=== PATIENT | male | born 1930 | race Caucasian/White ===

== ENCOUNTER → 2016-05-25 | Outpatient (CLI) | payer OTHER ==
[~2016-05-25] MED LIST: BIMA0.01 OPB; LEVO137T3 PO; LISI-729 PO; METO25TA3 PO; PRED10TA PO
[2016-05-25 16:02] LABS: ALT/SGPT 17 U/L (12-78); BLOOD UREA NITROGEN 19 mg/dl (7-18); BUN/CREATININE RATIO 21.7 (10-20); CALCIUM 9.6 mg/dl (8.5-10.1); CARBON DIOXIDE 27 mmol/L (21-32); CHLORIDE 106 mmol/L (98-107); CREATININE 0.87 mg/dl (0.60-1.40); GLUCOSE 135 mg/dl (70-99); POTASSIUM 4.1 mmol/L (3.5-5.1); SODIUM 142 mmol/L (136-145)
[2016-05-25 16:12] LABS: ALB/GLOB RATIO 1.1 (0.9-2); ALKALINE PHOSPHATASE 68 U/L (45-117); AST/SGOT 15 U/L (15-37); THYROID STIMULATING HORMONE 0.816 uIu/ml (0.300-4.500)
[2016-05-26 05:58] LABS: ESTIMATED AVERAGE GLUCOSE 146 mg/dl; HA1C FLAG Normal (Normal)
== END | disposition home or self-care (01) ==
LOC: C.LAB1850 14:10
PROVIDERS: ATTEND Internal Medicine
DX: E11.9 Type 2 diabetes mellitus without complications (principal); E03.9 Hypothyroidism, unspecified

== ENCOUNTER → 2016-07-05 | Outpatient (CLI) | payer OTHER | END | disposition home or self-care (01) | LOC: C.PATHSPEC 15:55 | PROVIDERS: ATTEND Podiatrist | DX: E11.621 Type 2 diabetes mellitus with foot ulcer (principal) ==

== ENCOUNTER → 2016-07-05 | Outpatient (CLI) | payer OTHER | END | disposition home or self-care (01) | LOC: C.LABSPEC 15:02 | PROVIDERS: ATTEND Podiatrist | DX: E11.621 Type 2 diabetes mellitus with foot ulcer (principal) ==

== ENCOUNTER → 2016-10-19 | Outpatient (CLI) | payer OTHER ==
[2016-10-19 12:32] LABS: ALT/SGPT 18 U/L (12-78); AST/SGOT 11 U/L (15-37); BLOOD UREA NITROGEN 18 mg/dl (7-18); BUN/CREATININE RATIO 17.7 (10-20); CALCIUM 9.6 mg/dl (8.5-10.1); CARBON DIOXIDE 31 mmol/L (21-32); CHLORIDE 107 mmol/L (98-107); CHOLESTEROL 248 mg/dl (0-200); GLUCOSE 125 mg/dl (70-99); POTASSIUM 4.2 mmol/L (3.5-5.1); SODIUM 142 mmol/L (136-145); TRIGLYCERIDES 137 mg/dl (0-150); VERY LOW DENSITY LIPOPROT CALC 27 mg/dl
[2016-10-19 12:38] LABS: ESTIMATED AVERAGE GLUCOSE 154 mg/dl; HA1C FLAG Normal (Normal)
[2016-10-19 12:42] LABS: ALB/GLOB RATIO 1.3 (0.9-2); ALKALINE PHOSPHATASE 48 U/L (45-117); CHOLESTEROL/HDL RATIO 4.3; HDL CHOLESTEROL 58 mg/dl; LDL CHOLESTEROL CALCULATED 163 mg/dl
== END | disposition home or self-care (01) ==
LOC: C.LAB1850 09:32
PROVIDERS: ATTEND Internal Medicine
DX: E11.9 Type 2 diabetes mellitus without complications (principal); E03.9 Hypothyroidism, unspecified

== ENCOUNTER → 2017-06-20 | Outpatient (CLI) | payer OTHER ==
--- NOTE | 2017-06-20 14:19 | DIAGNOSTIC IMAGING REPORT ---
BRAIN WITHOUT CONTRAST HISTORY: Mental status change R53.83 [id number] Gait [id number] Cerebral TECHNIQUE: Multiplanar multisequence MRI of the brain was performed without the use of contrast. COMPARISON STUDY: 02/26/2013 FINDINGS: There are no areas of restricted diffusion to suggest acute infarction. The midline structures are intact. The paranasal sinuses are clear. The mastoid air cells are clear. The ventricles and sulci are within normal limits for age. There is no mass, hematoma, midline shift. The major vascular flow-voids at the skull base are well maintained. Age-related atrophy and minimal chronic small vessel change are noted and appear stable from the prior exam. IMPRESSION: 1. Atrophy and age-related minimal chronic small vessel change. No acute process. No change from the prior exam. The above report was generated using voice recognition software. It may contain grammatical, syntax or spelling errors. Electronically signed by: Lane Red M.D. 06/20/2017 2:18 PM Dictated Date/Time: 06/20/2017 2:14 PM
== END | disposition home or self-care (01) ==
LOC: C.MRI 13:28
PROVIDERS: ATTEND Internal Medicine
DX: I67.9 Cerebrovascular disease, unspecified (principal); R42 Dizziness and giddiness; R53.83 Other fatigue; R26.81 Unsteadiness on feet; W19.XXXA Unspecified fall, initial encounter

== ENCOUNTER → 2017-07-17 | Outpatient (CLI) | payer OTHER ==
--- NOTE | 2017-07-17 16:09 | DIAGNOSTIC IMAGING REPORT ---
ABDOMEN 2VIEW W/PA CHEST RTN CLINICAL HISTORY: 86 years-old Male presenting with K59.00 [id number]. TECHNIQUE: PA view of the chest and supine and upright views of the abdomen were obtained. COMPARISON: Chest x-ray from 05/27/2015. FINDINGS: Median sternotomy wires intact. Atherosclerosis of aortic arch. Cardiac silhouette normal in size. Mild prominence of pulmonary arteries as on prior exam. No focal opacity. No large effusion or pneumothorax. Nonobstructive bowel gas pattern. Moderate stool burden in the right colon. No gross pneumoperitoneum. 8 mm calcification projects over the lower pole of the left kidney concerning for renal calculus. Multiple pelvic phleboliths. Degenerative changes of the spine. Degenerative changes of the hips, left greater than right. IMPRESSION: 1. No acute cardiopulmonary disease. 2. Moderate stool burden in the right colon could be consistent with constipation. No bowel obstruction. 3. Left renal calculus. Electronically signed by: Jose Garduno M.D. 07/17/2017 4:08 PM Dictated Date/Time: 07/17/2017 4:06 PM
[2017-07-17 16:38] LABS: BASO % 0.1 %; BASO ABS # 0.01 K/uL (0-0.2); EOS % 0.3 %; EOS ABS # 0.04 K/uL (0-0.5); HEMATOCRIT 47.5 % (42-52); HEMOGLOBIN 17.3 g/dL (14.0-18.0); IG# 0.17 K/uL (0.00-0.02); LYMPH % 8.2 %; LYMPH ABS # 0.95 K/uL (1.2-3.4); MEAN CELL VOLUME 93.9 fL (80-100); MEAN CORPUSCULAR HEMOGLOBIN 34.2 pg (25-34); MEAN CORPUSCULAR HGB CONC 36.4 g/dl (32-36); MEAN PLATELET VOLUME 8.9 fL (7.4-10.4); MONO % 5.2 %; NEUT % 84.7 %; NEUT ABS # 9.88 K/uL (1.4-6.5); PLATELET COUNT 259 K/uL (130-400); RED CELL DISTRIBUTION WIDTH CV 12.1 % (11.5-14.5); RED CELL DISTRIBUTION WIDTH SD 41.4 fL (36.4-46.3); WHITE BLOOD COUNT 11.65 K/uL (4.8-10.8)
[2017-07-17 17:08] LABS: CREATININE RANDOM URINE 74.2 mg/dl
[2017-07-17 17:10] LABS: ALBUMIN 3.7 gm/dl (3.4-5.0); ALT/SGPT 18 U/L (12-78); BLOOD UREA NITROGEN 25 mg/dl (7-18); CARBON DIOXIDE 28 mmol/L (21-32); CHOLESTEROL 264 mg/dl (0-200); CREATININE 1.39 mg/dl (0.60-1.40); GLUCOSE 315 mg/dl (70-99); POTASSIUM 4.2 mmol/L (3.5-5.1); SODIUM 130 mmol/L (136-145)
[2017-07-17 17:12] LABS: AST/SGOT 12 U/L (15-37); TOTAL PROTEIN 7.6 gm/dl (6.4-8.2)
[2017-07-17 17:20] LABS: ALKALINE PHOSPHATASE 71 U/L (45-117); LDL CHOLESTEROL CALCULATED 188 mg/dl
[2017-07-18 06:15] LABS: HEMOGLOBIN A1C 7.3 % (4.5-5.6)
== END | disposition home or self-care (01) ==
LOC: C.LAB1850 15:36
PROVIDERS: ATTEND Internal Medicine
DX: R10.9 Unspecified abdominal pain (principal); K59.00 Constipation, unspecified; E11.9 Type 2 diabetes mellitus without complications; E03.9 Hypothyroidism, unspecified; R53.83 Other fatigue; R26.81 Unsteadiness on feet; R42 Dizziness and giddiness; N20.0 Calculus of kidney

== ENCOUNTER → 2017-08-01 | Outpatient (CLI) | payer OTHER ==
[2017-08-01 14:38] LABS: BASO % 0.3 %; BASO ABS # 0.03 K/uL (0-0.2); EOS % 1.2 %; EOS ABS # 0.11 K/uL (0-0.5); HEMATOCRIT 43.3 % (42-52); HEMOGLOBIN 15.2 g/dL (14.0-18.0); LYMPH % 11.7 %; MEAN CELL VOLUME 93.5 fL (80-100); MEAN CORPUSCULAR HEMOGLOBIN 32.8 pg (25-34); MEAN CORPUSCULAR HGB CONC 35.1 g/dl (32-36); MEAN PLATELET VOLUME 8.8 fL (7.4-10.4); MONO % 5.8 %; MONO ABS # 0.55 K/uL (0.11-0.59); NEUT % 78.9 %; NEUT ABS # 7.45 K/uL (1.4-6.5); PLATELET COUNT 248 K/uL (130-400); RED CELL DISTRIBUTION WIDTH CV 12.3 % (11.5-14.5); RED CELL DISTRIBUTION WIDTH SD 41.5 fL (36.4-46.3); WHITE BLOOD COUNT 9.44 K/uL (4.8-10.8)
== END | disposition home or self-care (01) ==
LOC: C.LAB1850 13:36
PROVIDERS: ATTEND Internal Medicine
DX: D72.829 Elevated white blood cell count, unspecified (principal)

== ENCOUNTER 2017-10-31 05:30 | Day surgery (SDC) | payer OTHER ==
[~2017-10-31] VITALS: Ht 180.3 cm; Wt 86.2 kg
[2017-10-31 06:10] VITALS: BP 208/98; PULSE 78; TEMP 36.7; O2SAT 94; BMI 27.0
[2017-10-31] MEDS ORDERED: GLIM2TAB2 PO (06:31)
[2017-10-31] MEDS ORDERED: COCO1OIL2 (06:31)
[2017-10-31] MEDS ORDERED: ASPCH81X PO (06:31)
[2017-10-31] MEDS ORDERED: CINN1CAP2 PO (06:31)
[2017-10-31] MEDS ORDERED: FENTANYL CITRATE INJ 50 MCG/1 ML 2 ML VIAL ONE ×2 (07:35→11:11)
[2017-10-31] MEDS ORDERED: MIDAZOLAM HCL 1 MG/ML 2ML VIAL ONE ×2 (07:35→11:11)
[2017-10-31] MEDS ORDERED: HEPARIN SOD (PORCINE) 1000 UNIT/ML 10 ML VIAL ONE ×2 (07:35→10:39)
[2017-10-31] MEDS ORDERED: NITROGLYCERIN/D5W 100MCG/ML 20ML SYR ONE (07:38)
--- NOTE | 2017-10-31 07:46 | History & Physical Bridge Note ---
H&P Re-Evaluation Bridge Note: I have examined the patient, reviewed the History & Physical and in the interval since the performance of the History & Physical I have noted the following changes of clinical significance: No changes noted
--- NOTE | 2017-10-31 07:47 | Pre Sedation Assessment ---
Pre Sedation Assessment General Date of Sedation: Oct 31, 2017. Vital Signs Past 12 Hours Date Time Temp Pulse Resp B/P (MAP) Pulse Ox O2 Delivery O2 Flow Rate FiO2 10/31/17 06:10 36.7 78 20 208/98 (134) 94 Room Air Review Cardiovascular: regular rate, rhythm, no edema Lungs: chest non-tender, lungs clear Pre-Sedation Airway Assessment Smoking Status: Never Smoker Hx of Sleep Apnea: No Hx of difficult intubation: No Short Thick Neck: No Thyro-mental Distance: > 3 Finger Breadths Oral Cavity: Dentures Mallampati Classification: Class II ASA Classification: Class III NPO Status Date of Last Intake of Fluids: Oct 31, 2017 Time of Last Intake of Fluids: 0430 Date of Last Intake of Solids: Oct 30, 2017 Time of Last Intake of Solids: 1800 Procedure Planning Contraindications for Sedation: None Current Medications Reviewed: Yes Notes The planned sedation has been discussed with the patient. Informed Consent was obtained. I have identified the patient, determined the appropriateness of sedation and have assessed the patient immediately prior to the procedure. All medicine(s) and interventions are by my order.
[2017-10-31] MEDS ORDERED: NITROGLYCERIN 5 MG/ML 10 ML VIAL ONE (07:50)
[2017-10-31] MEDS ORDERED: NiCARDipine HCL INJ 2.5 MG/ML 10 ML AMP ONE (07:51)
[2017-10-31] MEDS ORDERED: FENTANYL CITRATE INJ 50 MCG/1 ML 2 ML VIAL IV ONE ×4 (08:26→12:01)
[2017-10-31] MEDS ORDERED: MIDAZOLAM HCL 1 MG/ML 2ML VIAL IV ONE ×4 (08:26→12:01)
[2017-10-31] MEDS ORDERED: LIDOCAINE HCL 1% 20 ML VIAL INJ ONE (08:27)
[2017-10-31] MEDS ORDERED: HydrALAZINE HCL 20 MG/ML VIAL ONE (09:03)
[2017-10-31] MEDS ORDERED: HydrALAZINE HCL 20 MG/ML VIAL IV. ONE (09:04)
[2017-10-31] MEDS ORDERED: HEPARIN SOD (PORCINE) 1000 UNIT/ML 10 ML VIAL IV ONE ×2 (09:21→10:40)
[2017-10-31] MEDS ORDERED: ORM MISCELLANEOUS MED XX ONE ×3 (11:14→12:50)
[2017-10-31] MEDS ORDERED: HEPARIN SOD (PORCINE) 5000 UNIT/ML 1 ML VIAL ONE (11:33)
[2017-10-31] MEDS ORDERED: ATROPINE SULFATE 0.1 MG/ML 10 ML SYR ONE (11:44)
[2017-10-31] MEDS ORDERED: NITROGLYCERIN 5 MG/ML 10 ML VIAL IART ONE (12:19)
[2017-10-31] MEDS ORDERED: IODIXANOL (VISIPAQUE) 270 MG/ML 150ML FLUSH ONE (12:44)
--- NOTE | 2017-10-31 13:01 | Post Sedation Assessment ---
Post Sedation Assessment General Date of Sedation Oct 31, 2017. Vital Signs: Vital Signs Past 12 Hours Date Time Temp Pulse Resp B/P (MAP) Pulse Ox O2 Delivery O2 Flow Rate FiO2 10/31/17 12:26 64 16 153/73 98 Oxymask 6 10/31/17 12:21 66 18 146/69 97 Oxymask 6 10/31/17 12:16 63 16 153/66 98 Oxymask 6 10/31/17 12:11 62 14 152/72 97 Oxymask 6 10/31/17 12:06 58 12 157/70 96 Oxymask 6 10/31/17 12:01 61 11 168/83 98 Oxymask 6 10/31/17 11:56 61 11 150/70 98 Oxymask 6 10/31/17 11:51 65 13 154/70 98 Oxymask 6 10/31/17 10:01 63 15 153/74 98 Oxymask 4 10/31/17 09:56 66 12 168/76 98 Oxymask 4 10/31/17 09:51 67 17 156/75 98 Oxymask 4 10/31/17 09:46 64 15 165/79 98 Oxymask 4 10/31/17 09:41 64 14 162/80 97 Oxymask 4 10/31/17 09:36 70 16 168/69 98 Oxymask 4 10/31/17 09:31 70 17 158/72 97 Oxymask 4 10/31/17 09:26 71 16 146/60 98 Oxymask 4 10/31/17 09:21 64 16 156/65 97 Oxymask 4 10/31/17 09:16 66 14 147/72 96 Oxymask 4 10/31/17 09:11 62 17 186/87 97 Oxymask 4 10/31/17 09:06 66 19 200/94 98 Oxymask 4 10/31/17 09:01 61 14 199/105 97 Oxymask 4 10/31/17 08:56 62 14 188/93 97 Oxymask 4 10/31/17 08:51 61 15 193/88 98 Oxymask 4 10/31/17 08:46 62 15 178/82 97 Oxymask 4 10/31/17 08:41 59 12 181/92 97 Oxymask 4 10/31/17 08:36 61 13 183/78 96 Oxymask 4 10/31/17 08:31 61 10 189/86 95 Oxymask 4 10/31/17 08:26 60 12 216/87 100 Oxymask 4 10/31/17 08:02 62 15 199/83 100 Oxymask 4 10/31/17 06:10 36.7 78 20 208/98 (134) 94 Room Air Post Procedure Recovery Score Activity: (2) Moves 4 extremities * Respiration: (2) Deep breath/cough Circulation: (2) +/-20% PreAnes Value Consciousness: (2) Fully Awake Oxygen Saturation: (1) O2 needed for >90% Discharge Sedation Level of Care: Fast Track Phase II Post Sedation Plan On clinical assessment, the patient appears to have tolerated the sedation without complications. Patient is recovering as anticipated. Patient will continue to be monitored by nursing and may be discharged when sedation discharge criteria are met per below protocol. Upon Completions of procedure and additional 15 minutes continue every 5 minute vital signs and the P.A.R. score; then discharge to a Phase I or Fast Track to Phase II per the following guidelines: * Discharge Patient to appropriate Phase II area if PAR is 8 or greater or return to pre- procedure baseline. The post - procedure orders will be as directed. * If PAR score is less than 8 or not return to pre-procedure baseline then patient will follow Phase I monitoring till PAR is reached for Phase II. The Phase I may be done in procedure room or may call to secure a Phase I area. * If naloxone or flumazenil are used for reversal, hold in Phase I for an additional 60 -120 minutes before discharge to Phase II. Please call the Sedation Physician to re-evaluate and complete post-note for discharge to Phase II area. Do NOT discharge from procedure sedation or Phase 1 until post- sedation evaluation note is complete by procedure /sedation MD Sedation Discharge Instructions to be given to the patient at discharge to home.
[2017-10-31] MEDS ORDERED: CLOPIDOGREL BISULFATE 300 MG TAB PO STA (13:02)
--- NOTE | 2017-10-31 13:02 | [facility] Post Operative Brief Note ---
Immediate Operative Summary Operative Date Oct 31, 2017. Pre-Operative Diagnosis Peripheral Artery Disease Post-Operative Diagnosis Peripheral Artery Disease Procedure(s) Performed Right Lower Extremity Angiogram, Ultrasound guided access to Right Femoral Artery and Right Posterior Tibial Arterys. Intravascular Ultrasound, Mechanical Thrombectomy, Percutaneous Transluminal Angioplasty and Stenting of Right Popliteal Artery, Percutaneous Transluminal Angioplasty Right Posterior Tibial Artery. Mechanical Closure of Right Femoral Artery. Surgeon Dr. Castro Director Community Organization Surgeon(s) None Estimated Blood Loss 150 Findings Consistent with Post-Op Diagnosis Specimens None Drains None Anesthesia Type IV Sedat Cons RN Only Complication(s) Small hematoma Disposition Accompanied Pt To Recover: no Disposition: PCU
[2017-10-31] MEDS ORDERED: GLUCAGON FOR INJ 1 MG VIAL SQ PRN (13:15)
[2017-10-31] MEDS ORDERED: GLUCOSE 40% GEL 15 GM TUBE PO PRN (13:15)
[2017-10-31] MEDS ORDERED: HYDROCODONE/ACETAMIN 5/325MG TAB PO PRN (13:15)
[2017-10-31] MEDS ORDERED: GLUCOSE 10 TABS/TUBE PO PRN (13:15)
[2017-10-31] MEDS ORDERED: DEXTROSE 50% 50 ML SYR IV PRN (13:15)
[2017-10-31] MEDS ORDERED: ACETAMINOPHEN 325 MG TAB PO PRN (13:15)
[2017-10-31] MEDS ORDERED: CARBOHYDRATES FOR HYPOGLYCEMIA PO PRN (13:15)
[2017-10-31] MEDS ORDERED: IV FLUIDS COMPLETED PRN (13:30)
[2017-10-31] MEDS ORDERED: PHARMACY GLYCEMIC MGMT CONSULT PRN (13:52)
[2017-10-31] MEDS ORDERED: SODIUM CHLORIDE 0.9% 1000ML 1,000 ML IV SCH (14:00)
--- NOTE | 2017-10-31 15:19 | Pharmacy Progress Note ---
Pharmacy Glycemic Short Note 2 Date of Service Oct 31, 2017. OUTPATIENT ANTIDIABETIC REGIMEN: * Glimepiride 2mg PO daily * A1c = 7.3% 07/17/17 ASSESSMENT: * Well controlled type 2 diabetic treated with glimepiride monotherapy * Admitted today for PAD and is s/p mechanical thrombectomy and PTCA R popliteal and R posterior tibial arteries * Fasting BSG 128 this AM. BSGs thus far have been in the 120's since admission * Will place the patient on Novolog SQ correction and carb coverage at this time and defer ordering basal insulin until tomorrow AM. PLAN FOR INPATIENT GLYCEMIC CONTROL: * Hold outpatient oral diabetes medications * Basal insulin * None at this time; reassess tomorrow * Bolus insulin * NovoLog per scale ACHS or Q6hrs while NPO * Goal Range: Low 120 mg/dL - High 150 mg/dL * Correction Factor: 30 mg/dL/unit * Nutritional / Prandial insulin per carb ratio of 1 unit per 10 grams CHO consumed PLAN FOR DISCHARGE: * May resume outpt regimen of glimepiride
[2017-10-31 15:31] VITALS: BP 134/68; PULSE 61; TEMP 36.5; O2SAT 93
[2017-10-31] MEDS: ASPIRIN 81 MG ECTAB PO SCH (15:41)
[2017-10-31 15:52] VITALS: Ht 180.3 cm; Wt 86.2 kg
[2017-10-31] MEDS ORDERED: NURSING VERBAL MED ORDER ONE (17:00)
[2017-10-31] MEDS: INSULIN ASPART 100 UNITS/ML 3 ML PEN SC SCH ×2 (18:14→21:00)
[2017-10-31 19:37] VITALS: BP 147/74; PULSE 71; TEMP 36.5; O2SAT 90
--- NOTE | 2017-10-31 23:04 | [facility] Operative Report ---
Operative Report Operative Date Oct 31, 2017. Pre-Operative Diagnosis Peripheral Artery Disease Post-Operative Diagnosis Peripheral Artery Disease Procedure(s) Performed Right Lower Extremity Angiogram, Ultrasound guided access to Right Femoral Artery and Right Posterior Tibial Arterys. Intravascular Ultrasound, Mechanical Thrombectomy, Percutaneous Transluminal Angioplasty and Stenting of Right Popliteal Artery, Percutaneous Transluminal Angioplasty Right Posterior Tibial Artery. Mechanical Closure of Right Femoral Artery. Surgeon Dr. Castro Mach[employer] Quality Inspector Surgeon(s) None Estimated Blood Loss 150 Findings Right lower extremity: SUPERINTENDENT METER TESTS - Mild disease Profunda - Minimal disease SFA - Moderate diffuse atherosclerosis Popliteal - Occluded in the mid segment TPT - Occluded AT -Occluded without reconstitution PT - Occluded reconstitutes distally Peroneal - Occluded reconstitute distally Specimens None Drains None Anesthesia Type IV Sedat Cons RN Only Complication(s) Small hematoma Disposition no PCU Description of Procedure Antegrade access in right SUPERINTENDENT METER TESTS with micropuncture and ultrasound guidance. 23 cm 6Fr sheath placed into SFA. Attempted to wire antegrade with glideadvantage and later 0.14 command wire + quick cross but unable wire into PT. Retrograde ultrasound guided access obtained in distal PT with 4Fr sheath. Wire passed through PT into popliteal/SFA with relative ease. Command wire externalized from SUPERINTENDENT METER TESTS sheath with 4Fr snare. NURSE RECRUITER dilated from the SUPERINTENDENT METER TESTS sheath in a antegrade fashion with 2.0, 2.5 balloons Popliteal artery dilated with 4.0 balloon. Significant recoil post dilation with apparent thrombus. IVUS used to assess vessel size and disease -- IVUS notable for significant thrombus in popliteal segment. Angiojet of popliteal artery performed with 6Fr proxi catheter -- post angiojet pass improved flow through popliteal Popliteal artery dilated with 6.0 balloon Distal SFA to popliteal stented with 6.0 x 100 Tigris stent TPT/Proximal NURSE RECRUITER dilated with 3.0 balloon IA vasodilators administered Good angiographic result, stent well expanded, single vessel distal runoff to the foot. Right SUPERINTENDENT METER TESTS access site closed with Mynx and manual closure Right NURSE RECRUITER site closed with manual closure. Contrast: 130 ml Summary: 1. Right popliteal mid to distal occlusion extending into the tibial arteries. Distal reconstitution of NURSE RECRUITER, peroneal. 2. Successful mechanical thrombectomy, angioplasty and stenting of popliteal artery with 6.0 x 100 Tigris stent. 3. Successful angioplasty of TPT/posterior tibial artery. I attest to the content of the Intraoperative Record and any orders documented therein. Any exceptions are noted below.
[2017-11-01 00:12] VITALS: BP 141/76; PULSE 72; TEMP 37; O2SAT 91
[2017-11-01 05:06] VITALS: BP 160/84; PULSE 81; TEMP 36.5; O2SAT 93
[2017-11-01] MEDS ORDERED: LEVOTHYROXINE 137 MCG TAB PO SCH (06:00)
[2017-11-01 06:42] LABS: HEMATOCRIT 42.3 % (42-52); HEMOGLOBIN 14.5 g/dL (14.0-18.0); MEAN CELL VOLUME 96.1 fL (80-100); MEAN CORPUSCULAR HGB CONC 34.3 g/dl (32-36); MEAN PLATELET VOLUME 8.8 fL (7.4-10.4); PLATELET COUNT 163 K/uL (130-400); RED CELL DISTRIBUTION WIDTH CV 12.7 % (11.5-14.5); RED CELL DISTRIBUTION WIDTH SD 44.1 fL (36.4-46.3); WHITE BLOOD COUNT 7.05 K/uL (4.8-10.8)
[2017-11-01 07:11] LABS: CALCIUM 8.8 mg/dl (8.5-10.1); CREATININE 0.75 mg/dl (0.60-1.40); POTASSIUM 3.8 mmol/L (3.5-5.1)
[2017-11-01] MEDS: ASPIRIN 81 MG ECTAB PO SCH (07:51)
[2017-11-01] MEDS: INSULIN ASPART 100 UNITS/ML 3 ML PEN SC SCH (07:53)
[2017-11-01 08:16] VITALS: BP 181/88; PULSE 74; TEMP 36.5; O2SAT 94
[2017-11-01] MEDS ORDERED: CZR25 PO (08:27)
[2017-11-01] MEDS ORDERED: PLV75 PO (08:27)
--- NOTE | 2017-11-01 08:29 | Discharge Instructions ---
Discharge Instructions Procedure Procedure Date: Nov 01, 2017. Reason for Visit: Right Lower Extremity Peripheral Artery Disease. Discharge Discharge Date: Nov 01, 2017. Discharge Diagnosis: Right lower extremity peripheral artery disease Last Recorded Wt (Kilograms): 86.200 Anesthesia Post Anesthesia Instructions: Instructions Activity Recommendations: limitations as noted below Recommended Home Diet: low sodium, low cholesterol Allergies: Coded Allergies: No Known Allergies (Verified , 10/31/17) Follow Up Additional Instructions: ACTIVITY RECOMMENDATIONS: It is common to feel weak and fatigue for a few days. * Do not drive or operate any motorized equipment for the next 2 days. * Limit stair usage (2 or 3 trips a day only) for the next three days. * Do not lift anything heavier than 10 pounds for the next three days. * Do not engage in vigorous exercise or any sports for the next five days. * You may shower the day after your procedure, but do not immerse the area for three days. Cleanse the site gently with soap and water. SPECIAL CARE INSTRUCTIONS: * You may replace the pressure dressing or band-aid the morning after the procedure. * After your procedure, it is normal to have a small bruise or small lump at the site. Examine your site daily for any change in the bruise or lump, redness, swelling, drainage or numbness. Notify your doctor if any change. BLEEDING: * If there is a small amount of bleeding at the site, lie down and apply firm pressure with a clean cloth for ten minutes. When the bleeding stops, lie quietly keeping the procedure limb straight for six hours. Notify your doctor as soon as possible. * If the bleeding does not stop after ten minutes or if there is a large amount of bleeding or spurting, call 911 immediately. Continue to lie down and hold firm pressure until help arrives. SKIN IRRITATION: * You may experience some redness and/or swelling in the area where radiation was administered. If any skin irritation occurs, please contact your family physician. FOLLOW UP VISIT: Keep any scheduled doctor appointments. Follow-up with: Dr. Castro in 3-4 weeks. Repeat lab work (basic metabolic panel in 1 week while on losartan). Orlando Nix Recommendations: Call your doctor if: * Temperature above 101 degrees * Pain not relieved by pain medicine ordered * There is increased drainage or redness from any incision * You have any unanswered questions or concerns. Your Doctors Instructions noted above were prepared by provider Kane Castro. Patient Signature Section: Patient Instructions Signature Page Alvaro Tobimack Patient (or Guardian) Signature/Date: I have read and understand the instructions given to me by my caregivers. Caregiver/RN/Doctor Signature/Date: The above-named patient and/or guardian has received patient instructions on this date. + Original Patient Signature Page (only) stays with chart. Please make copy for patient.
[2017-11-01] MEDS ORDERED: LOSARTAN POTASSIUM 25 MG TAB PO SCH (09:00)
[2017-11-01] MEDS ORDERED: CLOPIDOGREL BISULFATE 75 MG TAB PO SCH (09:00)
--- NOTE | 2017-11-01 09:03 | DIAGNOSTIC IMAGING REPORT ---
R ANKLE BRACHIAL INDEX LIMITED CLINICAL HISTORY: PAD popliteal stent placement. Prior angioplasty. TECHNIQUE: Ankle brachial indices COMPARISON STUDY: None FINDINGS: Ankle-brachial brachial indices on the right are 0.95 including the posterior tibial artery. Dorsalis pedis artery is 0.54 IMPRESSION: 1. Abnormally low ankle dorsalis pedis arterial ankle brachial index is 0.54. The above report was generated using voice recognition software. It may contain grammatical, syntax or spelling errors. Electronically signed by: Lane Red M.D. 11/01/2017 7:13 AM Dictated Date/Time: 11/01/2017 7:12 AM
[2017-11-01 09:38] VITALS: BP 172/88; PULSE 68; TEMP 36.8; O2SAT 95
--- NOTE | 2017-11-02 14:16 | Discharge Summary ---
Discharge Summary Date of Service Nov 02, 2017. Discharge Summary Admission Date: Oct 31, 2017 at 13:07 Discharge Date: Nov 01, 2017 Discharge Disposition: Home Principal Diagnosis: Critical limb ischemia Problems/Secondary Diagnoses: Peripheral arterial disease, hypertension, diabetes Immunizations: Have You Had Influenza Vaccine: Yes Influenza Vaccine Date: Feb 05, 2011 History of Tetanus Vaccine?: Unknown History of Pneumococcal: Yes History of Hepatitis B Vaccine: No Procedures: 1. Right lower extremity angiogram 2. Endovascular revascularization of popliteal/posterior tibial artery ( mechanical thrombectomy, stenting of popliteal artery, angioplasty of posterior tibial) Medication Reconciliation New Medications: Losartan Potassium (Losartan Potassium) 25 Mg Tab 1 TAB PO DAILY for 30 Days, #30 TAB 6 Refills Clopidogrel Bisulfate (Clopidogrel) 75 Mg Tab 75 MG PO QAM for 30 Days, #30 TAB 6 Refills Continued Medications: Aspirin (Aspirin Chewable) 81 Mg Chew 81 MG PO DAILY Bimatoprost (Lumigan) 0.01 % Marlyn 1 DROPS OPB BID for 90 Days, #7.5 ML 3 Refills Cinnamon (Cinnamon) 500 Mg Cap BID Coconut Oil (Bulk) (Coconut Oil) 1 Oil Oil DAILY Glimepiride (Glimepiride) 2 Mg Tab 1 TAB PO DAILY for 30 Days, #30 TAB 5 Refills Levothyroxine Sodium (Levothyroxine Sodium) 137 Mcg Tab 1 TAB PO DAILY for 30 Days, #30 TAB 5 Refills Prednisone Tab (Prednisone) 10 Mg Tab 10 MG PO DAILY, TAB Discharge Exam Mild ecchymosis at right common femoral artery access site. Intact right CHIEF BUSINESS OFFICER pulses. Distal right lower extremity warm, barely LF PT pulse, normal capillary refill. Fifth digit bandaged Hospital Course Mr. Lal is a very pleasant 87-year-old man with a history of coronary artery disease status post CABG in prior PCI with stenting, abdominal aortic aneurysm, type 2 diabetes, dyslipidemia and peripheral artery disease with right lower extremity critical limb ischemia. Patient has had a nonhealing ulceration involving the 5th digit on his right foot for more than 4 months. Denies any preceding trauma. Reports throbbing pain in his 5th digit at rest. No symptoms of claudication. Has been followed by his track leader and currently being treated with a 2nd course of antibiotics. Plan for upcoming 5th digit amputation. Preoperative TBI showed a right toe pressure of 35 mmHg in the setting of prior vascular ultrasound showing occluded distal popliteal and proximal tibial vessels. CTA was obtained and did not show significant inflow or SFA disease. Decision to proceed with right lower extremity angiogram and intervention. HOSPITAL COURSE: Patient underwent right lower extremity angiogram via right common femoral antegrade access. Was found a complete occlusion of his mid right popliteal artery with distal reconsitution of his PT and peroneal arteries. Complex endovascular intervention to the requiring retrograde access from the posterior tibial artery, mechanical thrombectomy, IVUS with eventual Tigris stent placement to popliteal artery (6 x 100mm) the to right posterior tibial artery. Final angiograms revealed in-line flow to the foot via PT artery. Postprocedure patient with admitted for observation. He had no significant pain , bleeding or other access site complications. Post-procedure labs were stable. Post procedure JAYRO on hospital day 1 showed JAYRO in the PT of 0.95 up from prior 0.57 in August of 2017. Patient discharged to home on new clopidogrel and losartan for elevated blood pressures to 180s during admission. Continued wound care with Podiatry. Follow-up with me in 3-4 weeks with repeat arterial duplex. Total Time Spent: Less than 30 minutes This includes examination of the patient, discharge planning, medication reconciliation, and communication with other providers. Discharge Instructions Please refer to the electronic Patient Visit Report (Discharge Instructions) for additional information.
[2017-11-05] MEDS ORDERED: CZR25 PO (14:10)
[2017-11-05] MEDS ORDERED: CLOP1TAB15 PO (14:10)
[2017-11-06] MEDS ORDERED: FLUT0.15 (06:48)
[2017-11-06] MEDS ORDERED: IBUP1CAP30 (06:48)
[2017-11-06] MEDS ORDERED: HYDR-5688 PO ×2 (07:57→09:09)
== END 2017-11-01 10:40 | disposition home or self-care (01) ==
LOC: C.ACU 05:30 → C.2E 13:07
PROVIDERS: ADMIT Internal Medicine Interventional Cardiology; ATTEND Internal Medicine Interventional Cardiology
DX: I99.8 Other disorder of circulatory system (principal); I73.9 Peripheral vascular disease, unspecified; I10 Essential (primary) hypertension; I25.10 Atherosclerotic heart disease of native coronary artery without angina pectoris; I71.4 Abdominal aortic aneurysm, without rupture; L97.519 Non-pressure chronic ulcer of other part of right foot with unspecified severity; E11.621 Type 2 diabetes mellitus with foot ulcer; E11.51 Type 2 diabetes mellitus with diabetic peripheral angiopathy without gangrene; L03.115 Cellulitis of right lower limb; E03.9 Hypothyroidism, unspecified; E78.5 Hyperlipidemia, unspecified; Z79.82 Long term (current) use of aspirin; Z79.899 Other long term (current) drug therapy; Z95.1 Presence of aortocoronary bypass graft

== ENCOUNTER → 2017-11-05 | Outpatient (CLI) | payer OTHER ==
[~2017-11-05] MED LIST changes: +ASPCH81X PO; +CINN1CAP2 PO; +CLOP1TAB15 PO; +COCO1OIL2; +CZR25 PO; +FLUT0.15; +GLIM2TAB2 PO; +HYDR-5688 PO; +IBUP1CAP30; -LISI-729 PO; -METO25TA3 PO; +PLV75 PO
--- NOTE | 2017-11-05 11:09 | DIAGNOSTIC IMAGING REPORT ---
CHEST 2 VIEWS ROUTINE HISTORY: 87 years-old Male PRE SURGERY preoperative exam. No acute chest complaints. COMPARISON: Acute abdominal series radiographs 07/17/2017, CTA 10/19/2017. TECHNIQUE: PA and lateral views of the chest FINDINGS: Cardiac silhouette is mildly enlarged. Prior median sternotomy with coronary arterial stent graft. Calcification of the aorta. Opacity about the left cardiophrenic angle compatible with prominent epicardial fat pad. Lungs are mildly hyperinflated with diaphragmatic flattening. There is no pneumothorax, pleural effusion, focal airspace consolidation or overt pulmonary edema. The bones of the chest appear grossly intact. IMPRESSION: No acute process. The above report was generated using voice recognition software. It may contain grammatical, syntax or spelling errors. Electronically signed by: Nick Lombardi M.D. 11/05/2017 11:08 AM Dictated Date/Time: 11/05/2017 11:06 AM
[2017-11-05 12:46] LABS: PTT PATIENT 27.8 SECONDS (21.0-31.0)
== END | disposition home or self-care (01) ==
LOC: C.RAD 10:26
PROVIDERS: ATTEND Podiatrist Foot & Ankle Surgery
DX: Z01.812 Encounter for preprocedural laboratory examination (principal); Z01.811 Encounter for preprocedural respiratory examination

== ENCOUNTER → 2017-11-06 | Day surgery (SDC) | payer OTHER ==
[2017-11-02 08:26] VITALS: BMI 26.0
[2017-11-05 14:10] VITALS: BMI 26.0
[~2017-11-06] VITALS: Ht 180.3 cm; Wt 86.4 kg
[~2017-11-06] MED LIST changes: +ATROPINE SULFATE 0.1 MG/ML 5ML SYR IV PRN; +CEFAZOLIN 2000MG IV PUSH 15 ML IV SCH; +CEFAZOLIN SOD 1000MG/7.5 ML IV PUSH ONE; +EpHEDrine SULFATE 50MG/5ML SYR ONE; +EpHEDrine SULFATE INJ 50 MG/ML AMP IV PRN; +FENTANYL CITRATE INJ 50 MCG/1 ML 2 ML VIAL IV PRN; +FENTANYL CITRATE INJ 50 MCG/1 ML 2 ML VIAL ONE; +LACTATED RINGER'S 1000ML 1,000 ML IV SCH; +LIDOCAINE HCL 1% 20 ML VIAL ONE; +LIDOCAINE HCL 2% 2 ML VIAL (20MG/ML) ONE; +MIDAZOLAM HCL 1 MG/ML 2ML VIAL ONE; +ONDANSETRON INJ 2 MG/ML 2 ML VIAL IV PRN; +ONDANSETRON INJ 2 MG/ML 2 ML VIAL ONE; +OXYCODONE/ACETAMINOPHEN 5-325 TAB PO PRN; -PLV75 PO; +PROPOFOL IV EMULSION 10 MG/ML 20 ML VIAL ONE; +SODIUM CHLORIDE 0.9% 1000ML 1,000 ML IV SCH
[2017-11-06 06:26] VITALS: BP 183/93; PULSE 78; TEMP 36.8; O2SAT 96; Ht 180.3 cm; Wt 86.4 kg
--- NOTE | 2017-11-06 08:01 | Discharge Instructions ---
Discharge Instructions Date of Service Nov 06, 2017. Admission Reason for Admission: Right Foot Cellulitis Discharge Discharge Diagnosis / Problem: Right 5th digit amputation Discharge Goals Goal(s): Decrease discomfort, Improve function Activity Recommendations Activity Limitations: per Instructions/Follow-up section Shower/Bathe: keep incision dry Weightbearing Status: Right partial . Instructions / Follow-Up Instructions / Follow-Up Rest, ice at ankle, elevate right foot. May weight bearing on right foot in surgical shoe. Limit weight bearing as much as possible. Keep dressing dry, clean and intact. If excessive bleeding occurs, please call the office for dressing change. Current Hospital Diet Patient's current hospital diet: Discharge Diet Recommended Diet: Regular Diet Procedures Procedures Performed: Right 5th digit amputation Pending Studies Studies pending at discharge: yes List of pending studies: X-ray 2 views right foot Medical Emergencies . Who to Call and When: Medical Emergencies: If at any time you feel your situation is an emergency, please call 911 immediately. . Non-Emergent Contact Non-Emergency issues call your: Primary Care Provider, Surgeon Call Non-Emergent contact if: temperature is above 100.5, your pain is not controlled, wound has increased drainage, wound has increased redness, wound has increased pain . "Provider Documentation" section prepared by Jayce Charles. . [place] Drug Monitoring Program Search Results: patient reviewed within database, no issues identified
--- NOTE | 2017-11-06 08:09 | History and Physical ---
History & Physical Date Nov 06, 2017. Chief Complaint Right 5th digit ulceration History of Present Illness The patient is a 87 year old male with complaints of Past Medical/Surgical History Medical Problems: (1) Abdom Aortic Aneurysm (2) Calculus Of Kidney (3) Coronary Atherosclerosis Of [place] Coronary Vessel (4) Diab Khloe Wo Compl, Type Ii Or Unspec Type, Not Uncntrld (5) Hypothyroidism Nos (6) PAD (peripheral artery disease) (7) Percutaneous Translum Coron Angioplasty Status (8) Pure Hypercholesterolem Additional History Endocrine Disorder: Yes Hypertension: Yes Heart Disease: Yes Allergies Coded Allergies: No Known Allergies (Verified , 11/06/17) Home Medications Scheduled Aspirin (Aspirin Chewable), 81 MG PO QAM Bimatoprost (Lumigan), 1 DROPS OPB BID Cinnamon (Cinnamon), 500 MG PO BID Clopidogrel (Plavix), 75 MG PO QAM Coconut Oil (Bulk) (Coconut Oil), DAILY Glimepiride (Glimepiride), 1 TAB PO QAM Levothyroxine Sodium (Levothyroxine Sodium), 137 MCG PO QAM Losartan Potassium (Losartan Potassium), 25 MG PO QAM Prednisone Tab (Prednisone), 10 MG PO QAM Scheduled PRN Hydrocodone/Acetaminophen 5MG/325MG (Bush 5MG/325MG), 1 TABLET PO Q6H PRN for Pain Miscellaneous Medications Fluticasone Propionate (Nasal) (Flonase Allergy Relief) Ibuprofen-Diphenhydramine Hcl (Advil Pm) Physical Examination Skin: + pertinent finding (Right 5th digit ulceration) Eyes: normal inspection Respiratory/Chest: lungs clear Cardiovascular: regular rate, rhythm, + pertinent finding (Abdominal aortic aneurysm; recent revascularization right lower leg) ASA Classification: ASA Class IV (Abdominal aortic aneurysm)
--- NOTE | 2017-11-06 08:09 | History & Physical Bridge Note ---
H&P Re-Evaluation Bridge Note: I have examined the patient, reviewed the History & Physical and in the interval since the performance of the History & Physical I have noted the following changes of clinical significance: No changes noted. Patient is in agreement and wishes to proceed with right 5th digit amputation. All consents have been signed and obtained.
--- NOTE | 2017-11-06 08:52 | [facility] Post Operative Brief Note ---
Immediate Operative Summary Operative Date Nov 06, 2017. Pre-Operative Diagnosis Right 5th Digit Ulcer Post-Operative Diagnosis Same as preop Procedure(s) Performed Amputation of Fifth Digit, Right Foot Surgeon Dr. Charles Funeral Pre Arrangement Counselor Surgeon(s) none Estimated Blood Loss 10 ml Findings Consistent with Post-Op Diagnosis Specimens A. Right 5th toe Drains None Anesthesia Type MAC Complication(s) none Disposition Accompanied Pt To Recover: no
--- NOTE | 2017-11-06 09:28 | [facility] Operative Report ---
Operative Report Operative Date Nov 06, 2017. 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 Charles Senior Technical Manager Surgeon(s) none Estimated Blood Loss 10 ml Specimens Right 5th digit was sent to pathology for gross histopathological specimen Drains None Anesthesia Type MAC Complication(s) none Disposition no Indications This is an 87 year old male patient who I have been following in the office for a right 5th digit arterial ulceration for the past several months. Patient has past medical history significant for an abdominal aortic aneurysm, coronary artery disease, hypertension, hyperlipedemia, and hypothyroidism. Patient had been attempting conservative treatment of his 5th digit with daily dressing changes consisting of betadine wet to dry dressings. After exhausting all conservative treatment options, I recommend patient undergo surgical amputation of his right 5th digit. Patient and patient's deferred this recommendation initially. He then presented to the office with exposure of the head of his middle phalanx and base of his distal phalanx following an at-home debridement performed by his granddaughter. At this time, I again recommended amputation of this digit as he now has exposed bone. Patient was in agreement with this plan. The perioperative indications, planned procedure, possible benefits, risks, complications, and anticipated healing time and management were discussed in detail with the patient. He understands and elects to proceed with surgery at this time. This case was also discussed with patient's who is also in agreement with this plan. Medical clearance has been obtained by the patient's primary care physician. Additionally, cardiac and vascular clearance were obtained. Patient has been vascularly optimized by Dr. Castro who performed intervention in his right lower extremity last week. The consent was signed as to which is surgical limb. No guarantees were made. All questions were answered to his apparent satisfaction. Description of Procedure The patient was transported to the operating room via cart and placed on the table in the supine position. Final verification of the patient, surgery, and limb designation was performed via the time out procedure. The preoperative injection was administered about the operative site consisting of 10cc 1% lidocaine plain. No tourniquet was used during the procedure today. The surgical extremity was then scrubbed, prepped and draped in the usual aseptic manner and surgery began as follows: Attention was directed to the dorsal aspect of the 5th digit right foot where a fishmouth type incision was made at the level of the proximal interphalangeal joint through the skin down to the level of the bone using a #15 blade. The 5th digit was carefully dissected free of all of its ligamentous and soft tissue attachments. This was passed from the operative field and sent to pathology for gross histopathological specimen. Next, a sagittal saw was utilized to resect the head of the proximal phalanx, which was also sent to pathology for specimen. The wound was inspected for any remaining sharp edges or bone fragments, and none were appreciated. Patient demonstrated significant perfusion and blood loss throughout duration of case. The wound was then flushed with copious amounts of normal sterile saline. Skin edges were reapproximated using 3-0 nylon in simple and horizontal mattress fashion. A post-operative dressing of betadine soaked adaptik, 4x4 gauze, and kerlix were applied to the right foot. The patient tolerated the procedure and anaesthesia well. He was transported to PACU with vital sings stable and vascular status intact to the right foot. He will be discharge to home today per anesthesia protocol with follow-up scheduled in the office on Sunday11/09/17. I attest to the content of the Intraoperative Record and any orders documented therein. Any exceptions are noted below.
--- NOTE | 2017-11-06 09:35 | DIAGNOSTIC IMAGING REPORT ---
RIGHT FOOT 2 VIEWS CLINICAL HISTORY: Amputation. FINDINGS: AP and lateral views of the right foot are obtained. No prior studies are available for comparison at the time of dictation. The skeletal structures are osteopenic. There as been amputation of the fifth toe at the level of the proximal phalangeal shaft. No acute fracture is identified. Mild osteoarthritic change is seen at the first metatarsophalangeal joint and at the tarsometatarsal joints. Degenerative spurring is seen along the dorsal aspect of the tarsal bones. A large plantar calcaneal enthesophyte is observed. Soft tissue edema is noted in the lateral forefoot. No radiodense foreign body is seen. IMPRESSION: 1. There has been amputation of the fifth toe as detailed above. 2. No acute fracture is seen. 3. Mild soft tissue edema is noted in the lateral forefoot. 4. Osteopenia and degenerative change as above. Electronically signed by: Rashaun Barlow M.D. 11/06/2017 9:33 AM Dictated Date/Time: 11/06/2017 9:31 AM
[2017-11-06 09:45] VITALS: BP 178/85; PULSE 57; TEMP 36.7; O2SAT 93
--- NOTE | 2017-11-06 09:48 | Anesthesiology Progress Note ---
Anesthesia Post Op Note Date & Time Nov 06, 2017 at 09:48 Vital Signs Pain Intensity: 0 Vital Signs Past 12 Hours Date Time Temp Pulse Resp B/P (MAP) Pulse Ox O2 Delivery O2 Flow Rate FiO2 11/06/17 09:33 36.7 94 Room Air 11/06/17 09:31 156/75 11/06/17 09:28 62 14 11/06/17 09:28 62 14 94 11/06/17 09:26 166/74 11/06/17 09:23 63 18 97 11/06/17 09:23 63 18 11/06/17 09:21 155/70 11/06/17 09:18 64 19 100 11/06/17 09:18 63 19 11/06/17 09:17 58 19 11/06/17 09:17 59 19 100 11/06/17 09:16 166/74 11/06/17 09:12 60 16 11/06/17 09:12 60 16 100 11/06/17 09:11 162/71 11/06/17 09:07 57 18 98 11/06/17 09:07 59 18 11/06/17 09:06 159/75 11/06/17 09:02 62 16 11/06/17 09:02 62 16 98 11/06/17 09:01 152/76 11/06/17 08:58 161/72 11/06/17 08:57 36.6 67 20 160/72 98 Oxymask 10 11/06/17 06:26 36.8 78 20 183/93 (123) 96 Room Air Notes Mental Status: alert / awake / arousable, participated in evaluation Pt Amnestic to Procedure: Yes Nausea / Vomiting: adequately controlled Pain: adequately controlled Airway Patency, RR, SpO2: stable & adequate BP & HR: stable & adequate Hydration State: stable & adequate Anesthetic Complications: no major complications apparent
[2017-11-06 10:15] VITALS: BP 169/84; PULSE 60; TEMP 36.7; O2SAT 94
== END | disposition home or self-care (01) ==
LOC: C.ACU 05:57
PROVIDERS: ATTEND Podiatrist Foot & Ankle Surgery
DX: E11.69 Type 2 diabetes mellitus with other specified complication (principal); M86.9 Osteomyelitis, unspecified; E11.621 Type 2 diabetes mellitus with foot ulcer; I77.2 Rupture of artery; E11.52 Type 2 diabetes mellitus with diabetic peripheral angiopathy with gangrene; L03.115 Cellulitis of right lower limb; I10 Essential (primary) hypertension; E78.00 Pure hypercholesterolemia, unspecified; I71.4 Abdominal aortic aneurysm, without rupture; I25.10 Atherosclerotic heart disease of native coronary artery without angina pectoris; E78.5 Hyperlipidemia, unspecified; E03.9 Hypothyroidism, unspecified; Z95.1 Presence of aortocoronary bypass graft; Z98.61 Coronary angioplasty status; Z79.82 Long term (current) use of aspirin

== ENCOUNTER 2018-09-30 07:25 | Inpatient (IN) ==
[2018-09-30] MEDS ORDERED: SODIUM CHLORIDE 0.9% 500 ML IV SCH (07:45)
[2018-09-30] MEDS ORDERED: ONDANSETRON INJ 2 MG/ML 2 ML VIAL IV STA (07:45)
[2018-09-30] MEDS ORDERED: LABETALOL HCL IV 5 MG/ML 20ML IV STA (07:56)
--- NOTE | 2018-09-30 07:57 | CT Scan Report ---
CT head/brain wo con CLINICAL HISTORY: 88 years-old Male presenting with fall, ABREU, AMS. TECHNIQUE: Multidetector CT imaging of the head was performed without the use of intravenous contrast . IV contrast: None. One or more dose lowering techniques were used consistent with the principles of ALARA (as low as reasonably achievable), including automatic exposure control, mA or kV adjustment t o individual patient size, and/or use of iterative reconstruction. COMPARISON: Brain MR from 06/20/2017. CT DOSE (mGy.cm): The estimated cumulative dose is 1067.42 mGy.cm. FINDINGS: Asset Protection Manager topogram: Unremarkable. Proportional ventricular and sulcal prominence, likely age-related parenchymal volume loss. No hemorr julita. Periventricular and subcortical white matter hypoattenuation, nonspecific but likely indicative of chronic small vessel ischemic change. No acute territorial infarct. No mass effect or midline andrei ft. No extra-axial fluid collection. Mucosal thickening in left ethmoid air cells. Calvarium intact. Postsurgical changes of the orbits. IMPRESSION: 1. Chronic small vessel ischemic change. No acute intracranial abnormality. Electronically signed by: Jose Garduno M.D. 09/30/2018 7:56 AM
[2018-09-30] MEDS ORDERED: SODIUM CHLORIDE 0.9% 1000ML 1,000 ML IV SCH (08:00)
--- NOTE | 2018-09-30 08:04 | CT Scan Report ---
CT OF THE CERVICAL SPINE WITHOUT CONTRAST CLINICAL HISTORY: fall, ABREU, neck pain COMPARISON STUDY: No previous studies for comparison. TECHNIQUE: Helical axial images of the cervical spine were obtained without IV contrast. Sagittal a nd coronal reconstructions were viewed. Automated exposure control was utilized for the study. A do se lowering technique was utilized adhering to the principles of ALARA. FINDINGS: Alignment of the cervical spine is anatomic. Vertebral body heights are maintained. There i s extensive anterior osteophytosis of the cervical spine with partial fusion at multiple levels. Ther e is severe multilevel facet arthrosis and degenerative disc disease. Note is made of a diagonal luce ncy which extends through the C6 vertebral body to the C5-C6 disc space. No extension into the hematology supervisor ior elements is identified. This is probably acute. Craniocervical junction is intact. IMPRESSION: 1. Nondisplaced fracture through the C6 vertebral body that extends to the C5-C6 disc space. Although age indeterminate, this is likely acute. 2. 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 Electronically signed by: Sundar Adams M.D. 09/30/2018 8:03 AM
[2018-09-30 08:11] LABS: Basophils # (auto) 0.02 K/uL (0-0.2); Basophils % (auto) 0.2 %; Eosinophils # (auto) 0.11 K/uL (0-0.5); Eosinophils % (auto) 1.2 %; Hematocrit (blood only) 48.1 % (42-52); Hemoglobin 17.2 g/dL (14.0-18.0); Immature Granulocytes # (auto) 0.14 K/uL (0.00-0.02); Immature Granulocytes % (auto) 1.6 %; Lymphocytes # (auto) 1.33 K/uL (1.2-3.4); Lymphocytes % (auto) 14.8 %; Mean Corpuscular Hgb Conc 35.8 g/dL (32-36); Mean Corpuscular Volume 93.2 fL (80-100); Mean Platelet Volume 8.9 fL (7.4-10.4); Monocytes # (auto) 0.83 K/uL (0.11-0.59); Monocytes % (auto) 9.2 %; Neutrophils # (auto) 6.55 K/uL (1.4-6.5); Platelet Count 209 K/uL (130-400); RDW Coefficient of Variation 12.6 % (11.5-14.5); RDW Standard Deviation 43.1 fL (36.4-46.3); Red Blood Count 5.16 M/uL (4.7-6.1); White Blood Count 8.98 K/uL (4.8-10.8)
[2018-09-30 08:25] LABS: Albumin Level 3.8 gm/dl (3.4-5.0); BUN Creatinine Ratio 18.5 (10-20); Calcium 11.2 mg/dl (8.5-10.1); Creatinine Clr Calc Pharmacy 50.4 ml/min; Est GFR (African American) 70.6; Potassium 4.1 mmol/L (3.5-5.1)
[2018-09-30 08:28] LABS: Bilirubin,Total 0.8 mg/dl (0.2-1); Globulin 3.8 gm/dl (2.5-4.0); Total Protein 7.6 gm/dl (6.4-8.2)
--- NOTE | 2018-09-30 08:50 | XRay Report ---
XR chest 1V portable CLINICAL HISTORY: AMS COMPARISON STUDY: Chest radiograph July 17, 2017. FINDINGS: Lung volumes are normal. Lungs are clear. There is no pneumothorax or pleural effusion. The re are median sternotomy wires. Cardiomegaly is unchanged. There is no evidence for pulmonary edema. IMPRESSION: No acute cardiopulmonary findings. No change in appearance of the chest. Electronically signed by: Sundar Adams M.D. 09/30/2018 8:48 AM
--- NOTE | 2018-09-30 09:25 | Emergency Department Note ---
Entered by Luz Guzmán acting as a scribe for History of Present Illness General Chief complaint: Confusion Stated complaint: MILD CONFUSION,WEAKNESS,HAS NOT EATEN/DRANK Time Seen by Provider: 09/30/18 07:38 Source: family Mode of arrival: ambulatory Limitations: no limitations History of Present Illness Provider complaint: confusion Onset (ago): day(s) (yesterday) Location: head Pain Consistency: + other (worsening) Quality: + other (confusion) Associated symptoms: + headaches, + loss of appetite and + nausea/vomiting (nausea, no emesis); no cough and no fever/chills Treatments prior to arrival: other (Tramadol) The patient is an 88 year old male who presents to the ER with his with complaints of worsening confusion that began yesterday. The patients at bedside reports that the patient has not been making any sense when speaking. She denies any speech slur. Per triage note, the patient was unable to remember date, month or age. The states that he did have a fall 2 weeks ago where he injured the back of his head. She explains that he had been baseline until last night where he complained of a headache and being nauseous. She denies any vomiting and notes that he has had a loss of appetite. She also reports that he has not wanted to drink fluids either. She states that he is not on any blood thinners or aspirin. She notes that he has a history of diabetes and a cardiac bypass. She also reports that the patient has been on Tramadol for back pain. She denies any recent fevers or coughs. Per triage, the patient walked into ER using a cane. Per , the patient is not any blood pressure medication and explains that they make him dizzy. Home Medications Home Medications Medication Instructions Recorded Confirmed Type cinnamon bark 500 mg capsule 500 mg PO BID #30 cap 09/09/18 09/30/18 Rx cholecalciferol (vitamin D3) 5,000 unit PO QAM 09/30/18 09/30/18 History [Vitamin D3] cyanocobalamin (vitamin B-12) 1,000 mcg PO QPM 09/30/18 09/30/18 History fluticasone propionate [Allergy 2 sprays INTNAS QAM 09/30/18 09/30/18 History Relief (fluticasone)] glimepiride 1 mg PO QPM 09/30/18 09/30/18 History levothyroxine 137 mcg PO QAM 09/30/18 09/30/18 History prednisone 5 mg PO BID 09/30/18 09/30/18 History timolol 1 drops OP QAM 09/30/18 09/30/18 History lisinopril 5 mg PO DAILY #30 tab 10/01/18 Rx Allergies Allergy/AdvReac Type Severity Reaction Status Date / Time No Known Allergies Allergy Unknown Verified 09/30/18 08:39 Past Med/Surg History Medical History Diabetes (Chronic) Acute myocardial infarction of inferior wall (Resolved 02/10/11) PAD (peripheral artery disease) (Chronic) Surgical History History of heart bypass surgery Social History Preferred Language: Sierra Leonean Communication Ability: Effective Communication Ability Comment: 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 and A total of 10 systems reviewed and were otherwise negative Physical Exam Vital Signs Vital Signs - 24 hr 09/30/18 07:26 09/30/18 07:31 09/30/18 08:10 Temperature 36.8 C Temperature Source Oral Sepsis Recent Fever Within 48 Hours No Sepsis New/Unexplained Change in Mental Status No Sepsis Action Taken by Nursing No Action Required Pulse Rate 89 Pulse Rate [Apical] Respiratory Rate 18 Respiratory Effort / Characteristics Non-Labored Respiratory Depth Normal Blood Pressure 212/118 H Blood Pressure [Right Arm] Blood Pressure Mean 149 Blood Pressure Mean [Right Arm] Pulse Oximetry 89 L 100 93 Oxygen Delivery Method Room Air Nasal Cannula Room Air Room Air Oxygen Flow Rate 0 09/30/18 08:14 09/30/18 08:35 09/30/18 08:52 Temperature Temperature Source Sepsis Recent Fever Within 48 Hours Sepsis New/Unexplained Change in Mental Status Sepsis Action Taken by Nursing Pulse Rate Pulse Rate [Apical] 81 69 69 Respiratory Rate 16 16 16 Respiratory Effort / Characteristics Respiratory Depth Blood Pressure Blood Pressure [Right Arm] 225/114 H 151/73 H 169/81 H Blood Pressure Mean Blood Pressure Mean [Right Arm] 151 99 110 Pulse Oximetry 93 93 95 Oxygen Delivery Method Room Air Nasal Cannula Nasal Cannula Oxygen Flow Rate 2 2 09/30/18 10:00 09/30/18 10:14 Temperature Temperature Source Sepsis Recent Fever Within 48 Hours Sepsis New/Unexplained Change in Mental Status Sepsis Action Taken by Nursing Pulse Rate Pulse Rate [Apical] 67 Respiratory Rate 16 Respiratory Effort / Characteristics Respiratory Depth Normal Blood Pressure Blood Pressure [Right Arm] 160/74 H Blood Pressure Mean Blood Pressure Mean [Right Arm] 102 Pulse Oximetry 96 Oxygen Delivery Method Nasal Cannula Oxygen Flow Rate 2 Vital signs reviewed. Noted to be markedly hypertensive. General: Well-appearing, elderly, in no significant distress. HEENT: No scleral icterus, PERRLA, neck supple. Atraumatic. Cardiovascular: Regular rate and rhythm, no extra sounds. Pulmonary: Crackles at the bases bilaterally, normal work of breathing. Abdomen: Soft, nontender, nondistended, positive bowel sounds. Musculoskeletal: Atraumatic, no peripheral edema. Neurologic: Patient is awake, alert, pleasantly confused, and oriented to place and age. Unable to answer date or time. Follows commands appropriately. Full strength in all 4 extremities. Cranial nerves 2 through 12 grossly intact. Skin: Warm, dry, no rash Course 0741: Past medical records reviewed. The patient was evaluated in room A10. A complete history and physical examination was performed. The patient was taken to CT. 0751: I updated the patient's family on his imaging results. 1011: I discussed the patient's case with Dr. Zaragoza - [facility] Hospitalist. He will evaluate the patient for further management. 1016: I reviewed the patients case with Dr. Koch Orthopedic Surgery. Administered Medications Discontinued Medications Acetaminophen (Tylenol) 650 mg PO Q4H PRN PRN Reason: Pain or Fever Stop: 10/30/18 12:20 Last Admin: 09/30/18 16:48 Dose: 650 mg Documented by: [id number] [facility]ir[facility] ([facility]rin [facility]) [facility] Stop: 10/31/18 08:59 Last Admin: 10/01/18 08:46 Dose: 81 mg Documented by: [id number] Cyanocobalamin (Vitamin B-12) 1,000 mcg PO QPM ARLETTE Stop: 10/30/18 20:59 Last Admin: 09/30/18 20:00 Dose: 1,000 mcg Documented by: [id number] Fluticasone Propionate (Flonase) 2 sprays BENSON QAM ARLETTE Stop: 10/31/18 08:59 Last Admin: 10/01/18 08:47 Dose: 2 sprays Documented by: [id number] Hydralazine HCl (Apresoline) 10 mg PO QID ARLETTE Stop: 10/30/18 12:59 Last Admin: 10/01/18 08:45 Dose: 10 mg Documented by: [id number] Admin: 09/30/18 19:59 Dose: 10 mg Documented by: [id number] Admin: 09/30/18 18:05 Dose: 10 mg Documented by: [id number] Admin: 09/30/18 14:50 Dose: 10 mg Documented by: [id number] Sodium Chloride (Nss 1000ml) 1,000 mls @ 125 mls/hr IV .Q8H ARLETTE Stop: 10/30/18 07:59 Last Infusion: 09/30/18 13:08 Dose: 0 mls/hr Documented by: [id number] Admin: 09/30/18 08:45 Dose: 125 mls/hr Documented by: [id number] Sodium Chloride (Nss) 500 mls @ 999 mls/hr IV .Q31M ARLETTE Stop: 09/30/18 08:15 Last Infusion: 09/30/18 08:44 Dose: 0 mls/hr Documented by: [id number] Admin: 09/30/18 08:13 Dose: 999 mls/hr Documented by: [id number] Sodium Chloride (Nss 1000ml) 1,000 mls @ 70 mls/hr IV .[id number] [facility] Stop: 10/30/18 12:20 Last Admin: 10/01/18 04:36 Dose: 70 mls/hr Documented by: [id number] Infusion: 10/01/18 04:36 Dose: 70 mls/hr Documented by: [id number] Admin: 09/30/18 14:50 Dose: 70 mls/hr Documented by: [id number] Insulin Aspart (Novolog Flexpen) 0 units SC ACHS [facility] Stop: 10/30/18 12:20 Last Admin: 10/01/18 08:51 Dose: Not Given Documented by: [id number] Cosigned by: [id number] Admin: 09/30/18 20:01 Dose: Not Given Documented by: [id number] Cosigned by: [id number] Admin: 09/30/18 16:50 Dose: 3 units Documented by: [id number] Cosigned by: [id number] Admin: 09/30/18 13:58 Dose: Not Given Documented by: [id number] Cosigned by: [id number] Labetalol HCl (Normodyne) 10 mg IV NOW STA Stop: 09/30/18 07:57 Last Admin: 09/30/18 08:19 Dose: 10 mg Documented by: [id number] Cosigned by: [id number] Levothyroxine Sodium (Levothyroxine Sodium) 137 mcg PO DAILYBB [facility] Stop: 10/31/18 06:29 Last Admin: 10/01/18 06:14 Dose: 137 mcg Documented by: [id number] Morphine Sulfate (Morphine Sulfate) 1 mg IV Q3H PRN PRN Reason: Pain Stop: 10/14/18 17:41 Last Admin: 09/30/18 21:06 Dose: 1 mg Documented by: [id number] Admin: 09/30/18 18:05 Dose: 1 mg Documented by: [id number] Ondansetron HCl (Zofran) 4 mg IV NOW STA Stop: 09/30/18 07:46 Last Admin: 09/30/18 08:19 Dose: 4 mg Documented by: [id number] Prednisone (Prednisone) 5 mg PO BID ARLETTE Stop: 10/30/18 20:59 Last Admin: 10/01/18 08:46 Dose: 5 mg Documented by: [id number] Admin: 09/30/18 19:59 Dose: 5 mg Documented by: [id number] Timolol Maleate (Timoptic 0.25% Oph) 1 drops OP QAM ARLETTE Stop: 10/31/18 08:59 Last Admin: 10/01/18 08:52 Dose: 1 drops Documented by: [id number] Vitamin D (Vitamin D3) 5,000 units PO QAM ARLETTE Stop: 10/31/18 08:59 Last Admin: 10/01/18 08:46 Dose: 5,000 units Documented by: [id number] Medical Decision Making Differential Diagnosis Differential diagnosis includes: toxic, metabolic, infectious, traumatic, cardiac, neurologic, hematologic, psychiatric and inflammatory etiologies. Medical Records Attestation: I reviewed the patient's medical records. Home Medications Current Medication List: was personally reviewed by me Laboratory Data Attestation: I reviewed the patient's lab results. Result diagrams: 09/30/18 08:00 09/30/18 08:00 Lab Results 09/30/18 09/30/18 Range/Units 08:00 08:00 WBC 8.98 (4.8-10.8) K/uL RBC 5.16 (4.7-6.1) M/uL Hgb 17.2 (14.0-18.0) g/dL Hct 48.1 (42-52) % MCV 93.2 (80-100) fL MCH 33.3 (25-34) pg MCHC 35.8 (32-36) g/dL RDW Std Deviation 43.1 (36.4-46.3) fL RDW Coeff of Bailee 12.6 (11.5-14.5) % Plt Count 209 (130-400) K/uL MPV 8.9 (7.4-10.4) fL Immature Gran % (Auto) 1.6 % Neut % (Auto) 73.0 % Lymph % (Auto) 14.8 % Nuckolls % (Auto) 9.2 % Eos % (Auto) 1.2 % Baso % (Auto) 0.2 % Immature Gran # (Auto) 0.14 H (0.00-0.02) K/uL Neut # (Auto) 6.55 H (1.4-6.5) K/uL Lymph # (Auto) 1.33 (1.2-3.4) K/uL Nuckolls # (Auto) 0.83 H (0.11-0.59) K/uL Eos # (Auto) 0.11 (0-0.5) K/uL Baso # (Auto) 0.02 (0-0.2) K/uL Sodium 137 (136-145) mmol/L Potassium 4.1 (3.5-5.1) mmol/L Chloride 100 (98-107) mmol/L Carbon Dioxide 28 (21-32) mmol/L Anion Gap 9.0 (3-11) BUN 20 H (7-18) mg/dl Creatinine 1.08 (0.6-1.4) mg/dl Est Cr Clr Drug Dosing 50.4 ml/min Est GFR ( Amer) 70.6 Est GFR (Non-Af Amer) 61.0 BUN/Creatinine Ratio 18.5 (10-20) Glucose 180 H (70-99) mg/dl Calcium 11.2 H (8.5-10.1) mg/dl Total Bilirubin 0.8 (0.2-1) mg/dl AST 12 L (15-37) U/L ALT 19 (12-78) U/L Alkaline Phosphatase 79 (45-117) U/L Total Protein 7.6 (6.4-8.2) gm/dl Albumin 3.8 (3.4-5.0) gm/dl Globulin 3.8 (2.5-4.0) gm/dl Albumin/Globulin Ratio 1.0 (0.9-2) Imaging Data Radiologist's Impression: Radiology results as stated below per my review and the radiologist's interpretation: CT OF THE CERVICAL SPINE WITHOUT CONTRAST CLINICAL HISTORY: fall, ABREU, neck pain COMPARISON STUDY: No previous studies for comparison. TECHNIQUE: Helical axial images of the cervical spine were obtained without IV contrast. Sagittal and coronal reconstructions were viewed. Automated exposure control was utilized for the study. A dose lowering technique was utilized adhering to the principles of ALARA. FINDINGS: Alignment of the cervical spine is anatomic. Vertebral body heights are maintained. There is extensive anterior osteophytosis of the cervical spine with partial fusion at multiple levels. There is severe multilevel facet arthrosis and degenerative disc disease. Note is made of a diagonal lucency which extends through the C6 vertebral body to the C5-C6 disc space. No extensio n into the posterior elements is identified. This is probably acute. Craniocervical junction is intact. IMPRESSION: 1. Nondisplaced fracture through the C6 vertebral body that extends to the C5-C6 disc space. Although age indeterminate, this is likely acute. 2. 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 Electronically signed by: Sundar Adams M.D. 09/30/2018 8:[address] head/brain wo con CLINICAL HISTORY: 88 years-old Male presenting with fall, ABREU, AMS. TECHNIQUE: Multidetector CT imaging of the head was performed without the use of intravenous contrast. IV contrast: None. One or more dose lowering techniques were used consistent with the principles of ALARA (as low as reasonably achievable), including automatic exposure control, mA or kV adjustment to individual patient size, and/or use of iterative reconstruction. COMPARISON: Brain MR from 06/20/2017. CT DOSE (mGy.cm): The estimated cumulative dose is 1067.42 mGy.cm. FINDINGS: Oil Expeller topogram: Unremarkable. Proportional ventricular and sulcal prominence, likely age-related parenchymal volume loss. No hemorrhage. Periventricular and subcortical white matter hypoattenuation, nonspecific but likely indicative of chronic small vessel ischemic change. No acute territorial infarct. No mass effect or midline shift. No extra-axial fluid collection. Mucosal thickening in left ethmoid air cells. Calvarium intact. Postsurgical changes of the orbits. IMPRESSION: 1. Chronic small vessel ischemic change. No acute intracranial abnormality. Electronically signed by: Jose Garduno M.D. 09/30/2018 7:56 AM XR chest 1V portable CLINICAL HISTORY: AMS COMPARISON STUDY: Chest radiograph July 17, 2017. FINDINGS: Lung volumes are normal. Lungs are clear. There is no pneumothorax or pleural effusion. There are median sternotomy wires. Cardiomegaly is unchanged. There is no evidence for pulmonary edema. IMPRESSION: No acute cardiopulmonary findings. No change in appearance of the chest. Electronically signed by: Sundar Adams M.D. 09/30/2018 8:48 AM ECG Data Attestation: I personally reviewed and interpreted this ECG as follows: Indication: altered mental status Rate (beats per minute): 83 Rhythm: normal sinus Findings: + other (previous anterior infarct, intraventricular conduction delay), + 1st degree AV block and + Q waves (Inferior) Blood Pressure Blood Pressure Findings: Elevated blood pressure Blood Pressure Disposition: further management by hospitalist ZACK Narrative This patient was evaluated and appeared to be in no significant distress. IV access was obtained and laboratory work was drawn. Patient was placed on the cafeteria monitor and found to be in a normal sinus rhythm with first-degree AV block. EKG reveals no evidence of acute ischemic change. Head CT was performed and is negative. CT scan of the cervical spine was performed and is significant for cervical spine fracture at C5-C6. Patient was placed in a [place] J collar. Laboratory work is fairly unrevealing. IV fluids were initiated. UA is concerning but also contaminated. This will be sent for culture. Patient's case was discussed with the hospitalist service. Dr. Koch of orthopedic spine was also informed. Patient will be evaluated for the change in mental status and further management. Impression & Plan Altered mental status, Cervical spine fracture, Hypertension Discharge Plan Visit Data *Final* Discharge Date/Time: 09/30/18 11:28 Chief Complaint: Confusion Stated Complaint: MILD CONFUSION,WEAKNESS,HAS NOT EATEN/DRANK ED Provider: Kiara Hernandes Discharge Problem: Altered mental status, Cervical spine fracture, Hypertension Patient Disposition: Admitted As Inpatient Discharge Instructions Interventions: ED Discharge Assessment Last Done: 09/30/18 11:28 Discharge Problem: Altered mental status Qualifiers: Altered mental status type: unspecified Qualified Code(s): R41.82 - Altered mental status, unspecified Cervical spine fracture Qualifiers: Encounter type: initial encounter Cervical vertebra fracture level: C6 Fracture type: closed Fracture morphology: other fracture Fracture alignment: no ndisplaced Qualified Code(s): S12.591A - Other nondisplaced fracture of sixth cervical vertebra, initial encounter for closed fracture Hypertension Qualifiers: Hypertension type: unspecified Qualified Code(s): I10 - Essential (primary) hypertension The scribe's documentation has been prepared under my direction and personally reviewed by me in its entirety. I confirm that the note above accurately reflects all work, treatment, procedures, and medical decision making performed by me.
--- NOTE | 2018-09-30 10:48 | History & Physical Report ---
Date of Service September 30, 2018 Assessment & Plan (1) Toxic encephalopathy: Probably from recent initiation of tramadol. Will discontinue tramadol and observe. Provide supportive care Present on Admission?: Yes (2) Accelerated hypertension: Telemetry. Start hydralazine therapy. Consider rate control measures if reflex tachycardia occurs Present on Admission?: Yes (3) Cervical spine fracture: At the C6 level. Probably from a recent fall. Cervical collar is in place. Consult orthopedic surgery. Obtain cervical spine MRI to rule out spinal cord contusion Present on Admission?: Yes (4) Coronary artery disease: Currently stable. 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 Avoid heparin or Lovenox until cervical contusion is ruled out History of Present Illness Chief Complaint: Altered mental status, neck pain Primary Care Provider: Lori Swift MD 88-year-old male who suffered a mechanical fall several weeks ago suffering neck pain. Initial x-rays were negative. He was given Ultram which he started several days ago and then developed altered mental status. This probably is due to the Ultram although UTI has not yet been ruled out. However, he has no UTI symptoms. CT scan of the neck reveals a C6 fracture that probably occurred when he fell. MRI of the C-spine is pending. His neck is immobilized with a cervical collar. Orthopedic consultation has been requested. He will be st arted on hydralazine for control of accelerated hypertension. EKG reveals normal sinus rhythm with conduction delays so beta-adelfo and calcium channel adelfo will be avoided. If hydralazine causes reflex tachycardia, then rate control measures can be undertaken. 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 He will remain on his prednisolone. Glimepiride will be held temporarily with sliding scale coverage. Family has requested full CODE STATUS at this time. Will avoid Lovenox or heparin subcu at this time until cervical contusion has been ruled out. SCDs only for now. Allergies Allergy/AdvReac Type Severity Reaction Status Date / Time No Known Allergies Allergy Unknown Verified 09/30/18 08:39 Home Medications Home Medications Medication Instructions Recorded Confirmed Type cinnamon bark 500 mg capsule 500 mg PO BID #30 cap 09/09/18 09/30/18 Rx prednisolone 5 mg tablet 5 mg PO BID #180 tab 09/09/18 09/30/18 Rx cholecalciferol (vitamin D3) 5,000 unit PO QAM 09/30/18 09/30/18 History [Vitamin D3] cyanocobalamin (vitamin B-12) 1,000 mcg PO QPM 09/30/18 09/30/18 History fluticasone propionate [Allergy 2 sprays INTNAS QAM 09/30/18 09/30/18 History Relief (fluticasone)] glimepiride 1 mg PO QPM 09/30/18 09/30/18 History levothyroxine 137 mcg PO QAM 09/30/18 09/30/18 History timolol 1 drops OP QAM 09/30/18 09/30/18 History Past Med/Surg History Medical History Diabetes (Chronic) Acute myocardial infarction of inferior wall (Resolved 02/10/11) PAD (peripheral artery disease) (Chronic) Surgical History History of heart bypass surgery Social History Preferred Language: Sammarinese marital status: Current Living Situation: Family Feels Safe at Home: Yes Smoking Status: Former smoker Review of Systems Review of Systems: Constitutional-no fever or chills. Altered mental status for several days ENT-no blurred vision, no double vision, no epistaxis, no sore throat Respiratory-no cough, no wheezing, no shortness of breath Cardiac-no palpitations, no chest pain, no syncope GI-no nausea, vomiting, diarrhea, melena, hematochezia -no urinary retention, no urinary incontinence, no dysuria, no hematuria Musculoskeletal-no joint pain, no muscle tenderness. Diffuse neck pain Skin-no bruising, no rashes, no pruritus Neuro-no isolated weakness, no paresthesia, no weakness Psych-no depression, no anxiety Physical Exam Physical Exam: General-alert and oriented x2, no fevers, no chills HEENT-head atraumatic and normocephalic, TMs intact bilaterally, pupils equal and reactive to light, extraocular muscles intact Neck-no lymphadenopathy or thyromegaly, trachea midline. Immobilized with cervical collar Chest-clear to auscultation percussion. No rales wheezing or rhonchi Cardiac-regular rate and rhythm, normal S1 and S2 Abdomen-normal bowel sounds, nontender, no hepatosplenomegaly Extremities-no cyanosis, clubbing, or edema Neuro-cranial nerves II through XII intact, motor and sensory function within normal limits, strength symmetrical , no focal deficits Psych-normal affect, normal mood Results & Data Vital Signs (Past 12 Hours) Vital Signs Temp Pulse Pulse Resp BP BP Pulse Ox 09/30/18 10:00 67 16 160/74 H 96 09/30/18 08:52 69 16 169/81 H 95 09/30/18 08:35 69 16 151/73 H 93 09/30/18 08:14 81 16 225/114 H 93 09/30/18 08:10 93 09/30/18 07:31 36.8 C 89 18 212/118 H 100 09/30/18 07:26 89 L Laboratory Results 09/30/18 08:00 09/30/18 08:00 PG Care Time/CCT Total # of Minutes Spent Total Time Spent with Patient: Total time spent is greater than 50% in coordination of care (as documented) at patient's floor/unit and/or counseling p atient: (1) Cervical spine fracture Cervical vertebra fracture level: C6 Encounter type: initial encounter Fracture alignment: nondisplaced Fracture morphology: other fracture Fracture type: closed Qualified Code(s): S12.591A - Other nondisplaced fracture of sixth cervical vertebra, initial encounter for closed fracture
[2018-09-30] MEDS ORDERED: HydrALAZINE HCL 20 MG/ML VIAL IV PRN (12:21)
[2018-09-30] MEDS ORDERED: ACETAMINOPHEN 325 MG TAB PO PRN (12:21)
[2018-09-30] MEDS ORDERED: ALUMINUM/MAGNESIUM SUSP 30 ML UDC PO PRN (12:21)
[2018-09-30] MEDS ORDERED: ONDANSETRON INJ 2 MG/ML 2 ML VIAL IV PRN (12:21)
[2018-09-30 13:24] LABS: Appearance Urine Cloudy (Clear); Bacteria Urine Automated Negative (Negative); Bilirubin Urine Negative (Negative); Blood Urine 3+ (Negative); Color Urine Yellow; Epithelial Cell Urine Auto >30 /lpf (0-5); Glucose Urine UA 1+ (Negative); Ketones Urine 1+ (Negative); Leukocyte Esterase Urine 1+ (Negative); Nitrite Urine Negative (Negative); Protein Urine Trace (Negative); RBC Urine Automated >30 /hpf (0-4); Specific Gravity Urine 1.021 (1.000-1.030); Urobilinogen Urine Negative (Negative); WBC Urine Automated >30 /hpf (0-5)
[2018-09-30] MEDS: INSULIN ASPART 100 UNITS/ML 3 ML PEN SC SCH ×3 (13:58→20:01)
--- NOTE | 2018-09-30 14:17 | Magnetic Resonance Report ---
MR cervical spine wo con CLINICAL HISTORY: 88 years-old Male presenting with C6 vertebral fracture. TECHNIQUE: Multisequence, multiplanar MR imaging of the cervical spine was performed without the use of intravenous contrast. IV contrast: None. COMPARISON: CT from earlier today. FINDINGS: Localizer images: Unremarkable. Image quality is degraded by patient positioning with the cervical spine more remote from the coil th en ideal. A fracture plane is noted through the C6 vertebral body extending from the C5-6 and a vertebral disc space obliquely through the vertebral body and exiting at the posterior cortex of the C6 vertebral lulu dy. No gross extension into the posterior elements. Fluid is noted within the fracture plane with onl y trace associated bony edema. There is partial osseous fusion of C5-6. A combination of straightening of the mid cervical spine of mixed otherwise preserved cervical lordos is is noted. Vertebral body heights and alignment maintained. Diffuse intervertebral disc desiccation and height loss with multilevel degenerative change. Osseous fusion across the C5-6 disc. Fluid is n oted within the C4-5 intervertebral disc with desiccation at the remaining levels. Additional multile sanjay degenerative changes further detailed below: C2-3: Disc osteophyte complex/uncovertebral hypertrophy results in moderate central effacement of the ventral thecal sac and more mild effacement of the lateral recesses bilaterally. Mild bilateral neur al foraminal narrowing. C3-4: Disc osteophyte complex and ligamentum flavum hypertrophy result in severe effacement of the th ecal sac and flattening of the spinal cord. Moderate bilateral neural foraminal narrowing arising fro m uncovertebral hypertrophy. C4-5: No significant spinal canal or neural foraminal narrowing. C5-6: Uncovertebral hypertrophy results in mild right neural foraminal narrowing. Only minimal efface ment of the ventral thecal sac arising from posterior spondylitic spurring and/or ossification of the posterior longitudinal ligament. C6-7: Disc osteophyte complex with mild effacement of the ventral thecal sac. No significant contouri ng of the spinal cord. Combination with uncovertebral hypertrophy, moderate bilateral neural foramina l narrowing. C7-T1: No significant neural foraminal or spinal canal narrowing. Cervical spinal cord flattening at C3-4 as mentioned above. No convincing evidence of abnormal spinal cord signal intensity. Craniocervical junction normal. No paraspinal muscle edema. IMPRESSION: 1. Fracture of the C6 vertebral body is felt to be subacute or chronic. 2. Partial osseous fusion from C4 to C6. This may be postsurgical or imply underlying diffuse idiopa thic skeletal hyperostosis. There may also be ossification of the posterior longitudinal ligament at these level. 3. 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 No convincing evidence of spinal cord edema or myelomalacia . Correlate clinically to exclude impingement. 4. Multilevel degenerative changes with multilevel neural foraminal narrowing as above. The report will be called/faxed according to standard departmental protocol. Electronically signed by: Jose Garduno M.D. 09/30/2018 2:15 PM
[2018-09-30] MEDS: HydrALAZINE 10 MG TAB PO SCH ×3 (14:50→19:59)
[2018-09-30] MEDS: SODIUM CHLORIDE 0.9% 1000ML 1,000 ML IV SCH (14:50)
--- NOTE | 2018-09-30 15:45 | Consultation Report ---
DATE OF CONSULTATION: 09/30/2018 CHIEF COMPLAINT: Low back pain. HISTORY OF PRESENT ILLNESS: Alvaro is a delightful patient. He is 88 years of age. I have known him for approximately 5 years. He fell, injured himself, got lightheaded, sounds like little too much Ultram which I had prescribed. He came into the Emergency Room for confusion and possible Ultram overdose. He is admitted to the medical service in addition because of his fall and injury. He was imaged appropriately with CT scans of his thoracic area including MRI scan of the thoracic and cervical spine area. Reason for my consultation when there was made a note of possible fracture through the C6 vertebrae to the C5-C6 disc interspace. I think I have looked at this, I have studied this including CT scan along with his MRI scan. I am not convinced it is a new injury. I do see the radiographic findings may be all degenerative. I do not think it is stable. It looks like he has an old fusion C5-C6, but I am not convinced this is a true new fracture, but I certainly do not my mind being incorrect. He has other comorbidities as well. PAST MEDICAL HISTORY: Other medical problems include hypertension, coronary artery disease, steroid dependence, DVT. MEDICATIONS: Listed. ALLERGIES: No known allergy. SOCIAL HISTORY: . No alcohol, no tobacco. Former smoker. Does have some chronic diabetes. Did have a myocardial infarction in 2010. OBJECTIVE: GENERAL: He is alert, oriented. He recognized me right away coming into his room. HEENT: Pupils react to light and accommodation. Ear, nose and throat clear. MUSCULOSKELETAL: He had no posterior cervical spine tenderness about the posterior elements even upper thoracic area. He did complain of some low back pain by which I had been taking care of him for conservative care. There is no obvious lesion to fix surgically. NEUROLOGICAL: Intact, 5/5 strength, good sensation, motor ability. IMAGING DATA: CT scan evaluated. MRI evaluated as well. ASSESSMENT: From an orthopedic standpoint, there is a possibility of a nondisplaced fracture at C6 vertebrae, does appear stable. He does have some stenosis, but no neurological embarrassment. PLAN: At this point in time, the collar is a reasonable idea. Since he has no pain, I would like to get him off the collar as soon as possible. In the short run why he is in the hospital, we will keep him in a cervical collar. He can take it off for bathing and eating. I will continue to follow.
[2018-09-30] MEDS: MoRPHine SULFATE 2 MG/ML CARP IV PRN ×2 (18:05→21:06)
[2018-09-30] MEDS: predniSONE 5 MG TAB PO SCH (19:59)
[2018-09-30] MEDS ORDERED: CYANOCOBALAMIN 500 MCG TABLET (VITAMIN B-12) PO SCH (21:00)
[2018-10-01] MEDS: SODIUM CHLORIDE 0.9% 1000ML 1,000 ML IV SCH (04:36)
[2018-10-01] MEDS ORDERED: LEVOTHYROXINE SODIUM 137 MCG TABLET PO SCH (06:30)
[2018-10-01] MEDS: HydrALAZINE 10 MG TAB PO SCH (08:45)
[2018-10-01] MEDS: predniSONE 5 MG TAB PO SCH (08:46)
[2018-10-01] MEDS: INSULIN ASPART 100 UNITS/ML 3 ML PEN SC SCH (08:51)
[2018-10-01] MEDS ORDERED: FLUTICASONE PROPIONATE NA SPR 16 GM BTL NAE SCH (09:00)
[2018-10-01] MEDS ORDERED: TIMOLOL MALEATE 0.25% OP SOLN 5 ML BTL OP SCH (09:00)
[2018-10-01] MEDS ORDERED: CHOLECALCIFEROL 1,000 UNITS TAB PO SCH (09:00)
[2018-10-01] MEDS ORDERED: ASPIRIN 81 MG ECTAB PO SCH (09:00)
--- NOTE | 2018-10-01 10:13 | Progress Note ---
DATE: 10/01/2018 SUBJECTIVE: He is alert, oriented this morning. Vital signs stable. He is still at bed rest. I reevaluated the cervical spine. He has no pain. He has good range of motion, flexion and extension. IMPRESSION: Stable cervical spine injury, chronic more than acute. PLAN: Includes physical therapy consultation. PT and OT. Hopefully we can get the patient home in the next few days.
--- NOTE | 2018-10-01 17:21 | Discharge Summary ---
Date of Service October 01, 2018 Admission HPI Per Admitting Provider 88-year-old male who suffered a mechanical fall several weeks ago suffering neck pain. Initial x-rays were negative. He was given Ultram which he started several days ago and then developed altered mental status. This probably is due to the Ultram although UTI has not yet been ruled out. However, he has no UTI symptoms. CT scan of the neck reveals a C6 fracture that probably occurred when he fell. MRI of the C-spine is pending. His neck is immobilized with a cervical collar. Orthopedic consultation has been requested. He will be started on hydralazine for control of accelerated hypertension. EKG reveals normal sinus rhythm with conduction delays so beta-adelfo and calcium channel adelfo will be avoided. If hydralazine causes reflex tachycardia, then rate control measures can be undertaken. 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 He will remain on his prednisolone. Glimepiride will be held temporarily with sliding scale coverage. Family has requested full CODE STATUS at this time. Will avoid Lovenox or heparin subcu at this time until cervical contusion has been ruled out. SCDs only for now. Principal Diagnosis Tramadol confusion Discharge Exam Constitutional WD/WN, vitals as above Eyes EOM intact bilaterally; no conjunctival abnormality ENMT external ear and nose normal, oropharynx normal Neck trachea midline, no thyromegaly normal visual inspection Respiratory normal respiratory effort, lungs clear to auscultation no respiratory distress Cardiovascular RRR, no murmur, no edema Gastrointestinal (Abdomen) Inspection/Auscultation: abdomen normal to inspection; abdomen not distended Musculoskeletal no cyanosis or clubbing, extremities motor strength 5/5 Skin no rashes, warm and dry Neurologic moves all extremities and awake Psychiatric Orientation: alert, oriented to person and cooperative Discharge Data Allergies Allergy/AdvReac Type Severity Reaction Status Date / Time No Known Allergies Allergy Unknown Verified 09/30/18 08:39 Consultations 09/30/18 10:18 Consult Orthopedic Surgery Stat 09/30/18 12:21 Consult Orthopedic Surgery Routine Ordered Studies 09/30/18 07:39 CT cervical spine wo con Stat CT head/brain wo con Stat 09/30/18 12:21 MR cervical spine wo con Routine Hospital Course (1) Toxic encephalopathy: Probably from recent initiation of tramadol. Discontinued tramadol and had no further confusion. (2) Accelerated hypertension: BP as high as 225/100 in the ED. Improved with hydralazine. Discharged on lisinopril as he had not wanted to be on HTN meds in the past. (3) Cervical spine fracture: At the C6 level. MRI of the spine showed the fracture was subacute to chronic. Seen by Dr. Koch who felt there was no operative need or need to wear a brace. - Will follow up in clinic. (4) Coronary artery disease: Currently stable. 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 Avoid heparin or Lovenox until cervical contusion is ruled out Total Time Total Time Spent Total Time Spent (In Minutes): 35 Total Time Includes: Examination of the Patient and Discharge Planning Discharge Plan Discharge Items Patient Disposition: Home - Self-Care Reason For Visit: MILD CONFUSION,WEAKNESS,HAS NOT EATEN/DRANK Discharge Diagnosis: Confusion due to medication Discharge Goals: Decrease discomfort and Diagnostic testing Activity: Resume your previous activity Non-emergency contact: Primary Care Provider and Surgeon Call non-emergency contact if: your symptoms worsen, your pain is not controlled and your temperature is above 100.5 Follow-up/Referrals: Lori Swift MD [Primary Care Provider] - Diet: Carb Consistent or DM2 Addtl Provider Instructions: Mr. Lal, You were admitted for confusion due to a medication. We believe the tramadol you took was the cause, as you seem to be pretty sensitive to medications. The CT scan of your neck showed a broken vertebra, but the MRI shows this is long- standing. Dr. Koch did not think it required any surgery. Please stick with Tylenol for now to help with your neck pain. Your blood pressure was also very high in the hospital. We started you on a low- dose blood pressure medication as you reported having dizziness previously with blood pressure medications. Please follow up with your PCP to have a blood pressure check. Please follow up with Dr. Koch in his office. If you have any further confusion, please contact your PCP to be seen in the office. Prescriptions: New lisinopril 5 mg tablet 5 mg PO DAILY Qty: 30 RF: 0 Continued cinnamon bark [Cinnamon] 500 mg capsule 500 mg PO BID Qty: 30 RF: 0 cholecalciferol (vitamin D3) [Vitamin D3] 5,000 unit Tablet 5,000 unit PO QAM RF: 0 glimepiride 1 mg tablet 1 mg PO QPM RF: 0 timolol 0.25 % drops 1 drops OP QAM RF: 0 fluticasone propionate [Allergy Relief (fluticasone)] 50 mcg/actuation spray,suspension 2 sprays INTNAS QAM RF: 0 cyanocobalamin (vitamin B-12) 1,000 mcg capsule 1,000 mcg PO QPM RF: 0 levothyroxine 137 mcg capsule 137 mcg PO QAM RF: 0 prednisone 5 mg Tablet 5 mg PO BID RF: 0 Stand-Alone Forms: [facility] Discharge Orders: Discharge Order (Routine); Ordered 10/01/18 Ordered By: Don Denson Admission Data Admit Date/Time: 09/30/18 10:48 Attending Provider: Don Denson Admit Provider: Randy Zaragoza Primary Care Provider: Lori Swift V. Other Providers: Ashu Koch Service: Telemetry Other Interventions: Discharge Summary Assessment (RN) Last Done: 10/01/18 12:34 DC Date/Time DO NOT enter until pt leaves facility: 10/01/18 12:58
== END 2018-10-01 12:58 | disposition home or self-care (01) | DRG 92 ==
LOC: ED 07:25 → 2S 10:48 → SUATTDRO 10:48 → 2E 11:28